=== PATIENT | male | born 1980 | race Caucasian/White ===

== ENCOUNTER 2020-08-09 11:56 | Emergency (ER) | payer BC ==
[2020-08-09] MEDS ORDERED: Proparacaine 0.5% Ophth Soln 15 ML Bottle EYERT STA (12:17)
[2020-08-09] MEDS ORDERED: Fluorescein 1 MG Ophth Strip EYERT STA (12:17)
[2020-08-09] MEDS ORDERED: Erythromycin Base 0.5% Ophth Oint 1 GM Tube EYERT STA (12:32)
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
== END 2020-08-09 12:58 | disposition home or self-care (01) ==
LOC: JD.ED 11:56
DX: T20.00XA Burn of unspecified degree of head, face, and neck, unspecified site, initial encounter (principal); S01.21XA Laceration without foreign body of nose, initial encounter; S05.01XA Injury of conjunctiva and corneal abrasion without foreign body, right eye, initial encounter; M79.651 Pain in right thigh; Z87.891 Personal history of nicotine dependence; E66.9 Obesity, unspecified; Z68.34 Body mass index [BMI] 34.0-34.9, adult; X08.8XXA Exposure to other specified smoke, fire and flames, initial encounter
CPT/HCPCS: 99283; A9270